=== PATIENT | female | born 1980 | race Caucasian/White ===

== ENCOUNTER → 2021-01-01 | Outpatient (REF) ==
--- NOTE | 2021-01-01 10:17 | REP ---
INDICATION: PAIN COMPARISON: None. TECHNIQUE: AP, lateral, coned-down views of the lumbar spine. FINDINGS: Three views of the lumbosacral spine demonstrate satisfactory alignment without acute fracture / compression injury or subluxation. No significant degenerative changes noted. IMPRESSION: 1. No acute fracture / compression injury or subluxation. 2. No significant degenerative changes noted. <Electronically signed by Mick Davis > 01/01/21 1019
--- NOTE | 2021-01-01 10:17 | REP ---
INDICATION: PAIN COMPARISON: None. TECHNIQUE: AP, lateral, bilateral oblique and sunrise views. FINDINGS: The osseous structures and joint spaces are intact and normal. There is no evidence for acute fracture or dislocation. No joint effusion is appreciated. Surrounding soft tissues are unremarkable. No subcutaneous emphysema or radiodense foreign body. IMPRESSION: Normal age-appropriate left knee examination. <Electronically signed by Mick Davis > 01/01/21 1017
== END ==
LOC: M PLAIMG 09:37
PROVIDERS: ATTEND Internal Medicine
DX: Z00.00 Encounter for general adult medical examination without abnormal findings (principal)